=== PATIENT | male | born 1955 | race Caucasian/White ===

== ENCOUNTER → 2017-12-08 07:19 | Outpatient (CLI) | payer OTHER, SELFPAY | PROVIDERS: Visit Provider Urology | DX: R97.20 Elevated prostate specific antigen [PSA] (principal) | CPT/HCPCS: 36415; 84153 ==

== ENCOUNTER → 2018-12-01 13:00 | Outpatient (CLI) | payer OTHER, SELFPAY ==
[2018-12-01 15:08] LABS: Prostate Specific Antigen 6.98 ng/mL (0.10-4.00)
== END ==
PROVIDERS: PCP Internal Medicine; Visit Provider Urology
DX: R97.20 Elevated prostate specific antigen [PSA] (principal)
CPT/HCPCS: 36415; 84153

== ENCOUNTER → 2019-04-26 09:36 | Outpatient (CLI) | payer OTHER, SELFPAY ==
[2019-04-26 11:41] LABS: Prostate Specific Antigen 6.66 ng/mL (0.10-4.00)
== END ==
PROVIDERS: Family Provider Internal Medicine; PCP Internal Medicine; Visit Provider Urology
DX: R97.20 Elevated prostate specific antigen [PSA] (principal)
CPT/HCPCS: 36415; 84153

== ENCOUNTER 2019-08-25 14:08 | Day surgery (SDC) | payer OTHER, SELFPAY ==
[2019-08-25 14:34] VITALS: BMI 28.7
[2019-08-25 14:40] VITALS: BP 139/82; PULSE 69; RESP 20; TEMP 36.2; O2SAT 95
[2019-08-25] MEDS: SODIUM CHLORIDE 0.9% 1,000 ML 200 ML IV (14:53)
--- NOTE | 2019-08-25 14:54 | PM.HP.1 ---
History of Present Illness History of Present Illness Date Patient Seen: 08/25/19 Time Patient Seen: 15:00 Chief complaint: 54031 Narrative: Patient presents for colorectal screening. He had a previous colonoscopy 3 years ago which was normal. He has a history of right colon cancer status post resection 10 years ago. On further history denies any recent gastrointestinal symptoms. No nausea, vomiting, abdominal pain, loss of appetite, unexplained weight loss, change in bowel habits, diarrhea, constipation, melena, hematochezia, or bright red blood per rectum. Patient History Surgical History Status post colectomy Family & Social History Family History Mother Age: 97 Diabetes mellitus Social History: household members spouse Tobacco & Substance use: Smoking Status Never smoker alcohol intake current alcohol intake frequency a few times a month Substance Use Type does not use Meds Home Medications and Allergies Home Medications Medication Instructions Recorded Confirmed Type ibuprofen 200 mg PO Q6HP #0 01/12/13 08/25/19 History ferrous sulfate [Iron (ferrous 325 mg PO QDAY #0 tab 02/21/16 08/25/19 History sulfate)] escitalopram oxalate [Lexapro] 10 mg PO QDAY #90 tab 10/19/17 08/25/19 Rx omeprazole 40 mg PO QDAY #90 cap 10/19/17 08/25/19 Rx sodium,potassium,mag sulfates 17.5 177 ml PO DAILY #354 ml 07/26/19 Rx gram-3.13 gram-1.6 gram oral soln simvastatin 20 mg PO QDAYPM 08/25/19 08/25/19 History Allergies Allergy/AdvReac Type Severity Reaction Status Date / Time hydromorphone [HYDROMORPHONE] AdvReac Mild HALLUCINATI Verified 08/25/19 14:31 ONS Review of Systems Review of Systems Narrative: A 10 point review of systems is negative except as noted in the HPI Exam Vital Signs (past 8 hours): - 08/25/19 14:40 Temperature 97.1 F L Pulse Rate 69 Respiratory Rate 20 Blood Pressure 139/82 Pulse Oximetry 95 Oxygen Delivery Method Room Air Narrative Exam Narrative: General-no acute distress, well nourished HEENT-moist mucous membranes, no scleral icterus Neck-supple, no lymphadenopathy Chest- non labored respirations, clear to auscultation bilaterally Cardiac-regular rate no peripheral edema Abdomen-soft, nontender, non distended Extremities-warm, well perfused Neurological-alert and oriented, no focal deficits Assessment & Plan Assessment and plan (1) Screening for colon cancer: Current visit: Yes Status: Acute Assessment & Plan narrative: The patient requires colorectal screening and colonoscopy is recommended. Technical details were discussed. Risks, benefits, alternatives explained. Risks including but not limited to myocardial infarction, aspiration, bleeding, pain, missed lesion, incomplete examination, need for further radiographic studies, colonic perforation, and need for major abdominal surgery were discussed. All questions were answered to their satisfaction, and they are in agreement with this plan.
--- NOTE | 2019-08-25 15:16 | PM.OP.ENDO ---
Operative Date/Time/Diagnoses Date of procedure: 08/25/19 Time of procedure: 15:17 Pre-op diagnosis: History of colon cancer Post-op diagnosis: same Procedure & Clinicians Study performed: Colonoscopy Same procedure as scheduled: Yes Indications: History of right colon cancer status post hemicolectomy Surgeon: Ignacio Dawson Procedure Notes SCOAP/Timeout: Performed Procedure in detail: Patient placed in left lateral decubitus position. Time out was performed. Procedural sedation was administered with Versed and Fentanyl. A rectal exam demonstrated no external hemorrhoids no internal masses. Colonoscopy scope was placed into the rectum and advanced through the colon. The ileal colonic anastomosis was observed and was normal in its appearance. The scope was then slowly withdrawn examining colon thoroughly in all directions. The colonoscopy was notable for the following 1. Borja diverticulosis 2. No masses or polyps 3. Grade 1 internal hemorrhoids Scope withdrawal time: NA-history of colectomy Sedation minutes: 12 Findings: diverticulosis Specimen(s): none sent Complications: none Impression: Diverticulosis Post-procedure Recommendations: Colonscopy in 5 years Disposition: same day surgery
[2019-08-25] MEDS: MIDAZOLAM 5 MG/5 ML VIAL IV (15:17)
[2019-08-25] MEDS: fentaNYL 250 MCG/5 ML INJ IV (15:17)
[2019-08-25 15:24] VITALS: BP 129/74; PULSE 81; RESP 14; TEMP 36.7; O2SAT 95
[2019-08-25 15:27] VITALS: BP 126/76; PULSE 64; RESP 15; O2SAT 94
[2019-08-25 15:42] VITALS: BP 130/78; PULSE 62; RESP 16; O2SAT 95
[2019-08-25 16:21] VITALS: BP 138/77; PULSE 64; RESP 12; TEMP 36.6; O2SAT 98
== END 2019-08-25 16:23 | disposition home or self-care (01) ==
PROVIDERS: Family Provider Internal Medicine; PCP Internal Medicine; Referring Provider Surgery; Visit Provider Surgery
PROC: 0DJD8ZZ Inspection of Lower Intestinal Tract, Via Natural or Artificial Opening Endoscopic (ICD-10-PCS; CPT 45378; principal; 2019-08-25 15:15)
DX: Z12.11 Encounter for screening for malignant neoplasm of colon (principal); Z90.49 Acquired absence of other specified parts of digestive tract; Z85.038 Personal history of other malignant neoplasm of large intestine; K64.0 First degree hemorrhoids; K57.30 Diverticulosis of large intestine without perforation or abscess without bleeding
CPT/HCPCS: 45378; 99152; J2250; J3010

== ENCOUNTER → 2019-08-27 14:54 | Outpatient (CLI) | payer OTHER, SELFPAY ==
--- NOTE | 2019-08-27 14:57 | DI.RAD.S_ITS ---
PROCEDURE: XR RIBS RT MIN 3V W CXR 1V INDICATIONS: recent URI, r/o rib fracture/pneumonia. Suspect costochondritis TECHNIQUE: 3 views of the right ribs were acquired, along with a single view chest. COMPARISON: [facility], , CHEST 2 VIEW, 10/18/2012, 12:14. FINDINGS: Surgical changes and devices: None. Bones and chest wall: No displaced right fractures or dislocations. No suspicious bony lesions. Overlying soft tissues appear unremarkable. Lungs and pleura: No pleural effusions or pneumothorax. There is a vague area of increased attenuation at the left costophrenic angle. Mediastinum: Mediastinal contours appear normal. Heart size is normal. IMPRESSION: 1. No displaced right rib fractures. 2. Vague area of increased density at the left costophrenic angle may represent atelectasis. Please correlate clinically to exclude pneumonia. Dictated by: Joss Root M.D. on 08/27/2019 at 15:51 Approved by: Joss Root M.D. on 08/27/2019 at 15:55
== END ==
PROVIDERS: Family Provider Internal Medicine; PCP Internal Medicine; Referring Provider Physician Assistant; Visit Provider Physician Assistant
DX: R07.89 Other chest pain (principal)
CPT/HCPCS: 71101

== ENCOUNTER 2023-04-11 22:56 | Emergency (ER) | payer OTHER, SELFPAY ==
[2023-04-11 22:59] VITALS: PULSE 66; RESP 16; TEMP 36.6; O2SAT 98; BMI 28.7
[2023-04-11 23:27] LABS: Add Manual Diff / Slide Review NO; Basophils Absolute Auto 0 /uL (0-100); Basophils Percent Auto 0.1 % (0-2); Eosinophils Absolute Auto 100 /uL (0-450); Eosinophils Percent Auto 1.1 % (2-4); Hematocrit 40.8 % (41-53); Lymphocytes Absolute Auto 500 /uL (1100-4500); Lymphocytes Percent Auto 4.5 % (25-40); Mean Corpuscular HGB Conc 34.3 % (30-36); Mean Corpuscular Hemoglobin 32.1 PG (26-34); Mean Corpuscular Volume 93.5 fL (80-100); Monocytes Absolute Auto 900 /uL (0-900); Monocytes Percent Auto 7.8 % (3-14); Neutrophils Absolute Auto 9900 /uL (1500-7000); Neutrophils Percent Auto 86.5 % (50-75); Platelet Count 151 X10^3/uL (150-400); Red Blood Cell Count 4.36 X10^6/uL (4.5-5.9); Red Cell Distribution Width 14.4 % (11.6-14.8); White Blood Cell Count 11.4 X10^3/uL (4.5-11.0)
[2023-04-11 23:29] VITALS: PULSE 63; O2SAT 97
[2023-04-11 23:30] VITALS: BP 146/76; PULSE 62; O2SAT 97
[2023-04-11 23:36] LABS: Alanine Aminotransferase 19 IU/L (<50); Albumin 4.1 g/dL (3.5-5.0); Albumin Globulin Ratio 1.3 (1.0-2.8); Alkaline Phosphatase 80 U/L (38-126); Aspartate Aminotransferase 23 IU/L (17-59); Bilirubin Total 0.6 mg/dL (0.2-1.3); Blood Urea Nitrogen 15 mg/dL (9-20); Calcium 9.3 mg/dL (8.4-10.2); Carbon Dioxide 24 mmol/L (22-32); Chloride 105 mmol/L (98-107); Estimated Glomerular Filt Rate > 60 mL/min (>60); Globulin 3.1 g/dL (1.7-4.1); Glucose 128 mg/dL (80-110); HEMOLYSIS < 15 (0-50); Lipase 723 U/L (23-300); Potassium 3.8 mmol/L (3.4-5.1); Sodium 139 mmol/L (137-145); Total Protein 7.2 g/dL (6.3-8.2)
[2023-04-12] VITALS (9 sets, daily range): BP systolic 134–160; BP diastolic 66–78; PULSE 60–63; RESP 16–24; TEMP 36.3; O2SAT 86–98
--- NOTE | 2023-04-12 00:27 | ED.ABDPAIN ---
HPI - Abdominal Pain General Chief Complaint: Abdominal Pain Stated Complaint: URQ pain Time Seen by Provider: 04/11/23 23:31 Source: patient Mode of arrival: Ambulatory History of Present Illness HPI narrative: Patient 67-year-old male history of cholecystectomy colectomy ongoing abdominal hernia presenting today with right upper quadrant pain. He reports that it has been there for the past couple of days progressively getting worse. He has been feeling nausea these he is had decrease appetite. No actual vomiting. No change in bowel or bladder habits. No fever chills. No painful frequent urination. Not having any chest pain palpitations. He denies any flank pain or radiation of pain is is really in 1 particular area in right upper quadrant Related Data Home Medications Medication Instructions Recorded Confirmed ibuprofen 200 mg tablet 200 mg PO Q6HP ##0 01/12/13 03/07/20 ferrous sulfate 325 mg (65 mg 325 mg PO QDAY #0 tabs 02/21/16 03/07/20 iron) tablet (Iron (ferrous sulfate)) simvastatin 40 mg tablet 20 mg PO QDAYPM 08/25/19 03/07/20 Previous Rx's Medication Instructions Recorded escitalopram oxalate 10 mg tablet 10 mg PO QDAY #90 tabs 10/19/17 (Lexapro) omeprazole 40 mg capsule,delayed 40 mg PO QDAY #90 caps 10/19/17 release sodium,potassium,mag sulfates 17.5 177 ml PO DAILY 2 doses #354 mL 07/26/19 gram-3.13 gram-1.6 gram oral soln (Suprep Bowel Prep Kit) ondansetron 4 mg disintegrating 4 mg PO BID PRN nausea and 03/07/20 tablet vomiting #10 tabs tamsulosin 0.4 mg capsule (Flomax) 0.4 mg PO DAILY #20 caps 03/07/20 hydrocodone 5 mg-acetaminophen 325 1 tab PO Q6H PRN pain #10 tabs 04/12/23 mg tablet ondansetron 4 mg disintegrating 4 mg PO Q8H PRN nausea and 04/12/23 tablet vomiting #10 tabs Allergies Allergy/AdvReac Type Severity Reaction Status Date / Time hydromorphone [HYDROMORPHONE] AdvReac Mild HALLUCINATI Verified 03/07/20 12:31 ONS Review of Systems Review of Systems ROS Unobtainable: All systems reviewed & are unremarkable except as noted in HPI and below Patient History Medical History Kidney stone Right-sided chest wall pain Surgical History Status post colectomy Family History Mother Age: 100 Diabetes mellitus Social History household members: spouse Smoking Status: Never smoker alcohol intake: current Smoking Status: Never smoker alcohol intake frequency: a few times a month Substance Use Type: does not use Exam Initial Vital Signs Initial Vital Signs: Vital Signs Temperature 97.9 F 04/11/23 22:59 Pulse Rate 66 04/11/23 22:59 Respiratory Rate 16 04/11/23 22:59 Pulse Oximetry 98 04/11/23 22:59 Oxygen Delivery Method Room Air 04/11/23 22:59 GENERAL: Alert pleasant 67-year-old and in no acute distress. HEENT: Head atraumatic,EOMI, pupils reactive, face symmetric, moist mucous membranes CARDIOVASCULAR: Regular rate and rhythm without murmurs, rubs or gallops. RESPIRATORY: Breath sounds equal bilaterally, no wheezes rales or rhonchi. ABDOMEN: Soft, tender right upper quadrant and guarding no rebound surgical scar noted ventral hernia noted EXTREMITIES: Normal range of motion, no clubbing or edema. Neurovascularly intact NEUROLOGICAL: Alert and oriented x4. SKIN: Warm, dry, no laceration, no petechiae, no rashes or lesions. Course Orders Ordered: ED Orders 04/11/23 23:17 Complete Blood Count AUTO DIFF Stat Comprehensive Metabolic Panel Stat Lipase Stat 04/12/23 00:32 CT abdomen pelvis w con Stat Discontinued Medications Hydrocodone Bitart/Acetaminophen (Hydrocodone/Acet 5/325 Tablet) 1 tab PO NOW ONE Stop: 04/12/23 02:01 Last Admin: 04/12/23 02:22 Dose: 1 tab Documented By: SHANTANU Hydrocodone Bitart/Acetaminophen (Hydrocodone/Acet 5/325 Prepack) 1 bottle MISC SEEINSTR ONE Stop: 04/12/23 02:02 Last Admin: 04/12/23 02:23 Dose: 1 bottle Documented By: SHANTANU Ketorolac Tromethamine (Ketorolac 30 Mg/Ml Vial) 15 mg IV NOW ONE Stop: 04/12/23 00:33 Last Admin: 04/12/23 00:46 Dose: 15 mg Documented By: SHANTANU Ondansetron HCl (Ondansetron 4 Mg Odt Prepack) 1 bottle MISC SEEINSTR ONE Stop: 04/12/23 02:01 Last Admin: 04/12/23 02:22 Dose: 1 bottle Documented By: SHANTANU Vital Signs Vital signs: Vital Signs - 8 hr 04/11/23 22:59 04/11/23 23:29 04/11/23 23:30 Temperature 97.9 F Pulse Rate 66 63 62 Respiratory Rate 16 Blood Pressure Pulse Oximetry 98 97 97 Oxygen Delivery Method Room Air 04/11/23 23:30 04/12/23 00:00 04/12/23 00:00 Temperature Pulse Rate 60 Respiratory Rate Blood Pressure 146/76 H 144/77 H Pulse Oximetry 96 Oxygen Delivery Method 04/12/23 00:30 04/12/23 00:31 04/12/23 00:31 Temperature Pulse Rate 63 62 Respiratory Rate Blood Pressure 154/75 H Pulse Oximetry 97 97 Oxygen Delivery Method 04/12/23 01:03 04/12/23 01:06 04/12/23 01:06 Temperature Pulse Rate 62 60 Respiratory Rate 17 Blood Pressure 160/78 H Pulse Oximetry 86 L 98 Oxygen Delivery Method 04/12/23 01:30 04/12/23 01:30 04/12/23 02:02 Temperature Pulse Rate 60 60 Respiratory Rate 16 24 Blood Pressure 135/67 Pulse Oximetry 96 98 Oxygen Delivery Method 04/12/23 02:03 04/12/23 02:03 04/12/23 02:25 Temperature 97.3 F L Pulse Rate 60 Respiratory Rate 20 Blood Pressure 134/66 Pulse Oximetry 97 Oxygen Delivery Method MDM - Abdominal Pain Lab Data 04/11/23 23:17 04/11/23 23:17 Labs: Lab Results 04/11/23 Range/Units 23:17 WBC 11.4 H (4.5-11.0) X10^3/uL RBC 4.36 L (4.5-5.9) X10^6/uL Hgb 14.0 (13.5-17.5) g/dL Hct 40.8 L (41-53) % MCV 93.5 (80-100) fL MCH 32.1 (26-34) PG MCHC 34.3 (30-36) % RDW 14.4 (11.6-14.8) % Plt Count 151 (150-400) X10^3/uL Neut % (Auto) 86.5 H (50-75) % Lymph % (Auto) 4.5 L (25-40) % [place] % (Auto) 7.8 (3-14) % Eos % (Auto) 1.1 L (2-4) % Baso % (Auto) 0.1 (0-2) % Neut # (Auto) 9900 H (7215-6639) /uL Lymph # (Auto) 500 L (0827-0345) /uL [place] # (Auto) 900 (0-900) /uL Eos # (Auto) 100 (0-450) /uL Baso # (Auto) 0 (0-100) /uL Sodium 139 (137-145) mmol/L Potassium 3.8 (3.4-5.1) mmol/L Chloride 105 (98-107) mmol/L Carbon Dioxide 24 (22-32) mmol/L BUN 15 (9-20) mg/dL Creatinine 0.75 (0.66-1.25) mg/dL Estimated GFR > 60 (>60) mL/min BUN/Creatinine Ratio 20.0 (6-22) Glucose 128 H (80-110) mg/dL Calcium 9.3 (8.4-10.2) mg/dL Total Bilirubin 0.6 (0.2-1.3) mg/dL AST 23 (17-59) IU/L ALT 19 (<50) IU/L Alkaline Phosphatase 80 (38-126) U/L Total Protein 7.2 (6.3-8.2) g/dL Albumin 4.1 (3.5-5.0) g/dL Globulin 3.1 (1.7-4.1) g/dL Albumin/Globulin Ratio 1.3 (1.0-2.8) Lipase 723 H (23-300) U/L Imaging Data CT scan - abdomen/pelvis: Radiologist's Impression: PROCEDURE: CT ABDOMEN PELVIS W CON INDICATIONS: RUQ abdominal pain x 2 days. TECHNIQUE: After the administration of intravenous contrast, axial sections acquired from the lung bases to the pubic symphysis. Coronal and sagittal reformats were performed. For radiation dose reduction, the following was used: automated exposure control, adjustment of mA and/or kV according to patient size. COMPARISON: None. FINDINGS: Image quality: Excellent. Lung bases: Unremarkable. Heart: No significant findings. ABDOMEN: Liver: Multiple water density hepatic cysts suspicious for representing evidence of polycystic hepatic renal syndrome.. Gallbladder: Previously resected Biliary ducts: Unremarkable. Pancreas: Pancreatitis is suspected adjacent to the transverse duodenum given the pattern mild edema in this area. Anterior to the area of retroperitoneal apparent inflammation is a masslike structure that measures up to 3.5 cm in dimension. This has central low attenuation that could represent an inflammatory mass. Spleen: Unremarkable. Adrenal Glands: Unremarkable. Kidneys and Ureters: No obstruction. The number of cysts present at the kidneys bilaterally is small when compared to the number of cysts seen involving the liver. This does not entirely exclude the possibility of hepatic renal polycystic disease syndrome. Stomach and Bowel: Stomach, small bowel loops, and colon are unremarkable. Please refer to discussion of left lower quadrant body wall herniation of small bowel within the pelvis section below. Peritoneum: No abnormal intraperitoneal fluid. No free air. Ventral Wall: No hernias. Abdominal Nodes: No retroperitoneal or mesenteric adenopathy by size criteria. Vessels: Aorta and inferior vena cava are normal in size. Note is made of greater than 50% stenosis at the right common iliac artery due to eccentric calcific atherosclerotic chronic thrombosis. PELVIS: Pelvic Organs: Unremarkable. Bladder: Unremarkable. Pelvic Nodes: No enlarged lymph nodes. Miscellaneous: A body wall defect just to the left of midline is seen at the anterior pelvis body wall on series 2, image 60. Small bowel extends through this defect into the subcutaneous fat but does not appear to be edematous and definitely incarcerated or strangulated.. Bones: Unremarkable. IMPRESSION: 1. Apparent pancreatitis involving the pancreatic neck and body. Retroperitoneal edema is immediately adjacent. Slightly more anteriorly within the peritoneal fat is a masslike structure which could represent an inflammatory mass in this clinical circumstance that measures up to 3.5 cm in diameter. Follow-up is recommended to confirm resolution. If the structure enlarges or persists malignant neoplasm must be considered. 2. Left lower quadrant anterior pelvic body wall peritoneal defect through which a segment of small bowel passes into the subcutaneous fat. The small bowel involved does not appear definitely edematous and incarcerated/strangulated. 3. Prior cholecystectomy. Possible hepatorenal polycystic disease, with greater involvement by the liver than by the kidneys. Greater than 50% stenosis at the right common iliac artery by chronic eccentric thrombus. Dictated by: Trevor Nicholson M.D. on 04/12/2023 at 1:29 MDM Narrative Medical decision making narrative: Patient 67-year-old male presenting to his right upper quadrant pain just progressively gotten worse. He is nauseous no vomiting decrease in appetite. Blood work has been reviewed mild elevation in lipase at around 775. CT shows apparent Pancreatitis of pancreatic neck and body with masslike structure which could be inflammation. Patient has no significant vomiting he does have some pain however it is pretty well controlled. He is tolerating fluids. At this time recommend home management we discussed pain medication and fluids. Also discussed need for re-evaluation and reimaging in regards to possible mass. Known cause of pancreatitis. He denies any alcohol usage he has had prior cholecystectomy. Bilirubin and liver enzymes are within normal limits low suspicion for common bile duct stone. Time no need for admission Discharge Plan Departure Patient Disposition: Home Clinical Impression: Acute pancreatitis Instructions: DI for Pancreatitis Activity Restrictions/Additional Instructions: *You have been diagnosed with pancreatitis *What to do: At this time increase fluid intake recommend Gatorade or Gatorade like product. May eat as tolerated CT did suggest masslike structure or inflammatory process this needs to be re-evaluated by her primary care provider with repeat imaging *Continue to take medications as directed [place] 1 tablet every 6 hours if needed for [id number] pain Motrin 600 mg every 6 hours if needed for orot-ri-nucbypeh pain Zofran 4 mg every 8 hours if needed for nausea or vomiting *Follow up with your primary care provider in 2-3 days or call [phone] *Return to ER if you should have increasing pain persistent vomiting fever [or] any new, worsening or concerning symptoms CONTROLLED SUBSTANCE DISCHARGE (Narcotoic/benzodiazepine/Flexeril/Phenergan) 1. You have been prescribed narcotic medications, it does have acetaminophen/Tylenol/paracetamol in it, DO NOT TAKE MORE THAN 4,00mg in 24 hours of Tylenol. TRAMADOL DOES NOT CONTAIN TYLENOL 2. Please understand that we cannot provide further refills of narcotics, benzodiazepines or controlled substances through the ED and her pain management will need to be through your provider. 3. While on these medications you cannot drive or operate heavy machinery. 4. You cannot sign legal documents or perform any duties such as this. 5. As long as you're taking opiate pain medications he should also be taking a stool softener such as Colace, Dulcolax, MiraLAX or prune juice, to help avoid constipation. Prescriptions: New hydrocodone-acetaminophen 5-325 mg tablet 1 tab PO Q6H PRN (Reason: pain) Qty: 10 0RF ondansetron 4 mg tablet,disintegrating 4 mg PO Q8H PRN (Reason: nausea and vomiting) Qty: 10 0RF No Action ondansetron 4 mg tablet,disintegrating 4 mg PO BID PRN (Reason: nausea and vomiting) Qty: 10 0RF tamsulosin [Flomax] 0.4 mg capsule 0.4 mg PO DAILY Qty: 20 0RF ibuprofen 200 MG tablet 200 mg PO Q6HP Qty: 0 ferrous sulfate [Iron (ferrous sulfate)] 325 MG tablet 325 mg PO QDAY Qty: 0 omeprazole 40 MG capsule,delayed release(DR/EC) 40 mg PO QDAY Qty: 90 3RF escitalopram oxalate [Lexapro] 10 MG tablet 10 mg PO QDAY Qty: 90 3RF Suprep Bowel Prep Kit 17.5-3.13-1.6 gram recon soln 177 ml PO DAILY Qty: 354 0RF Rx Instructions: Take per instructions from clinic simvastatin 40 MG tablet 20 mg PO QDAYPM Referrals: Omar Higgins MD [Primary Care Provider] - Stand Alone Forms: Patient Portal/API
--- NOTE | 2023-04-12 00:32 | DI.CT.S_ITS ---
PROCEDURE: CT ABDOMEN PELVIS W CON INDICATIONS: RUQ abdominal pain x 2 days. TECHNIQUE: After the administration of intravenous contrast, axial sections acquired from the lung bases to the pubic symphysis. Coronal and sagittal reformats were performed. For radiation dose reduction, the following was used: automated exposure control, adjustment of mA and/or kV according to patient size. COMPARISON: None. FINDINGS: Image quality: Excellent. Lung bases: Unremarkable. Heart: No significant findings. ABDOMEN: Liver: Multiple water density hepatic cysts suspicious for representing evidence of polycystic hepatic renal syndrome.. Gallbladder: Previously resected Biliary ducts: Unremarkable. Pancreas: Pancreatitis is suspected adjacent to the transverse duodenum given the pattern mild edema in this area. Anterior to the area of retroperitoneal apparent inflammation is a masslike structure that measures up to 3.5 cm in dimension. This has central low attenuation that could represent an inflammatory mass. Spleen: Unremarkable. Adrenal Glands: Unremarkable. Kidneys and Ureters: No obstruction. The number of cysts present at the kidneys bilaterally is small when compared to the number of cysts seen involving the liver. This does not entirely exclude the possibility of hepatic renal polycystic disease syndrome. Stomach and Bowel: Stomach, small bowel loops, and colon are unremarkable. Please refer to discussion of left lower quadrant body wall herniation of small bowel within the pelvis section below. Peritoneum: No abnormal intraperitoneal fluid. No free air. Ventral Wall: No hernias. Abdominal Nodes: No retroperitoneal or mesenteric adenopathy by size criteria. Vessels: Aorta and inferior vena cava are normal in size. Note is made of greater than 50% stenosis at the right common iliac artery due to eccentric calcific atherosclerotic chronic thrombosis. PELVIS: Pelvic Organs: Unremarkable. Bladder: Unremarkable. Pelvic Nodes: No enlarged lymph nodes. Miscellaneous: A body wall defect just to the left of midline is seen at the anterior pelvis body wall on series 2, image 60. Small bowel extends through this defect into the subcutaneous fat but does not appear to be edematous and definitely incarcerated or strangulated.. Bones: Unremarkable. IMPRESSION: 1. Apparent pancreatitis involving the pancreatic neck and body. Retroperitoneal edema is immediately adjacent. Slightly more anteriorly within the peritoneal fat is a masslike structure which could represent an inflammatory mass in this clinical circumstance that measures up to 3.5 cm in diameter. Follow-up is recommended to confirm resolution. If the structure enlarges or persists malignant neoplasm must be considered. 2. Left lower quadrant anterior pelvic body wall peritoneal defect through which a segment of small bowel passes into the subcutaneous fat. The small bowel involved does not appear definitely edematous and incarcerated/strangulated. 3. Prior cholecystectomy. Possible hepatorenal polycystic disease, with greater involvement by the liver than by the kidneys. Greater than 50% stenosis at the right common iliac artery by chronic eccentric thrombus. Dictated by: Trevor Nicholson M.D. on 04/12/2023 at 1:29 Approved by: Trevor Nicholson M.D. on 04/12/2023 at 1:40
[2023-04-12] MEDS: KETOROLAC 30 MG/ML VIAL 15 MG IV (00:46)
[2023-04-12] MEDS: HYDROCODONE/ACET 5/325 TABLET 1 TAB PO (02:22)
[2023-04-12] MEDS: ONDANSETRON 4 MG ODT PREPACK 1 BOTTLE MISC (02:22)
[2023-04-12] MEDS: HYDROCODONE/ACET 5/325 PREPACK 1 BOTTLE MISC (02:23)
== END 2023-04-12 02:26 | disposition home or self-care (01) ==
PROVIDERS: Emergency Provider Emergency Medicine; Family Provider Internal Medicine; PCP Internal Medicine
DX: K85.90 Acute pancreatitis without necrosis or infection, unspecified (principal)
CPT/HCPCS: 36415; 74177; 80053; 83690; 85025; 96374; 99284; J1885; Q9967

== ENCOUNTER 2023-04-12 13:35 | Emergency (ER) | payer OTHER, SELFPAY ==
[2023-04-12] VITALS (19 sets, daily range): BP systolic 120–154; BP diastolic 62–82; PULSE 56–68; RESP 14–20; TEMP 36.7; O2SAT 93–97; BMI 24.4
--- NOTE | 2023-04-12 15:30 | ED_ITS ---
HPI - General Adult General Chief complaint: Abdominal Pain Stated complaint: worsening sx/states pancreatitis Time Seen by Provider: 04/12/23 13:44 Source: patient Mode of arrival: Ambulatory History of Present Illness HPI narrative: 67-year-old gentleman presents for the 2nd time in 24 hours with continued abdominal pain. He was diagnosed with acute pancreatitis last night he is post cholecystectomy. Last night he was tolerating food, oral nausea medications and oral pain medications and decision was made to go home. He is gotten progressively worse. And comes back for further evaluation. He has been unable to eat for approximately 24 hours. He did try some fluids last night which made symptoms significantly worse. He does not describe any fevers. Zofran in the emergency department has controlled his nausea. Related Data Home Medications Medication Instructions Recorded Confirmed ibuprofen 200 mg tablet 200 mg PO Q6HP ##0 01/12/13 03/07/20 ferrous sulfate 325 mg (65 mg 325 mg PO QDAY #0 tabs 02/21/16 03/07/20 iron) tablet (Iron (ferrous sulfate)) simvastatin 40 mg tablet 20 mg PO QDAYPM 08/25/19 03/07/20 Previous Rx's Medication Instructions Recorded escitalopram oxalate 10 mg tablet 10 mg PO QDAY #90 tabs 10/19/17 (Lexapro) omeprazole 40 mg capsule,delayed 40 mg PO QDAY #90 caps 10/19/17 release sodium,potassium,mag sulfates 17.5 177 ml PO DAILY 2 doses #354 mL 07/26/19 gram-3.13 gram-1.6 gram oral soln (Suprep Bowel Prep Kit) ondansetron 4 mg disintegrating 4 mg PO BID PRN nausea and 03/07/20 tablet vomiting #10 tabs tamsulosin 0.4 mg capsule (Flomax) 0.4 mg PO DAILY #20 caps 03/07/20 hydrocodone 5 mg-acetaminophen 325 1 tab PO Q6H PRN pain #10 tabs 04/12/23 mg tablet ondansetron 4 mg disintegrating 4 mg PO Q8H PRN nausea and 04/12/23 tablet vomiting #10 tabs oxycodone-acetaminophen 5 mg-325 1 - 2 tab PO Q6H PRN pain #14 tabs 04/12/23 mg tablet Allergies Allergy/AdvReac Type Severity Reaction Status Date / Time hydromorphone [HYDROMORPHONE] AdvReac Mild HALLUCINATI Verified 03/07/20 12:31 ONS Review of Systems Review of Systems Narrative: Pertinent positive and negative findings as per HPI Patient History Medical History Kidney stone Right-sided chest wall pain Surgical History Status post colectomy Family History Mother Age: 100 Diabetes mellitus Social History household members: spouse Smoking Status: Never smoker alcohol intake: current Smoking Status: Never smoker alcohol intake frequency: a few times a month Substance Use Type: does not use Exam Initial Vital Signs Initial Vital Signs: Vital Signs Pulse Rate 66 04/12/23 13:42 Pulse Oximetry 97 04/12/23 13:42 General: Healthy appearing, in mild distress. Able to give a complete and coherent history. Well-nourished well-developed HEENT: Moist mucous membranes, normal sclera with reactive pupils, Neck: No JVD, supple Respiratory: Lungs are clear to auscultation, no wheezing no rales no rhonchi. Full and symmetrical air movement Cardiac: Regular rate and rhythm no murmurs no bruits Abdomen: Distended but soft, mild abdominal pain only. No flank pain Skin: Warm and dry, no rashes Neurologic: Grossly neurologically intact with no obvious asymmetries or abnormalities Extremities: No trauma, well perfused Psych: Cooperative, appropriate insight and affect Course Orders Ordered: ED Orders 04/12/23 16:01 Complete Blood Count AUTO DIFF Stat Comprehensive Metabolic Panel Stat Lipase Stat Hydromorphone HCl (Hydromorphone 0.5 Mg Inj) 0.5 mg IV Q15MIN PRN PRN Reason: Pain, Discontinued Medications Hydromorphone HCl (Hydromorphone 1 Mg Inj) 1 mg IV NOW ONE Stop: 04/12/23 15:32 Last Admin: 04/12/23 16:04 Dose: 1 mg Documented By: KESHIA Sodium Chloride (Normal Saline 0.9%) 1,000 mls @ 1,000 mls/hr IV BOLUS ONE Stop: 04/12/23 16:30 Last Infusion: 04/12/23 16:59 Dose: Infused Documented By: Admin: 04/12/23 16:05 Dose: 1,000 mls/hr Documented By: KESHIA Ondansetron HCl (Ondansetron 4 Mg/2 Ml Inj) 4 mg IV NOW ONE Stop: 04/12/23 15:32 Last Admin: 04/12/23 16:04 Dose: 4 mg Documented By: KESHIA Vital Signs Vital signs: Vital Signs - 8 hr 04/12/23 13:42 04/12/23 13:44 04/12/23 13:44 Temperature Pulse Rate 66 65 Respiratory Rate Blood Pressure 150/75 H Pulse Oximetry 97 97 Oxygen Delivery Method 04/12/23 13:48 04/12/23 14:00 04/12/23 14:30 Temperature 98.1 F Pulse Rate 68 64 67 Respiratory Rate 18 Blood Pressure 150/75 H 145/65 H 150/62 H Pulse Oximetry 97 96 96 Oxygen Delivery Method Room Air 04/12/23 15:00 04/12/23 15:17 04/12/23 15:17 Temperature Pulse Rate 63 63 Respiratory Rate Blood Pressure 154/72 H 154/72 H Pulse Oximetry 95 95 Oxygen Delivery Method 04/12/23 15:30 04/12/23 15:30 04/12/23 15:53 Temperature Pulse Rate 64 64 Respiratory Rate Blood Pressure 145/82 H Pulse Oximetry 95 95 Oxygen Delivery Method 04/12/23 15:53 04/12/23 16:00 04/12/23 16:00 Temperature Pulse Rate 62 Respiratory Rate 16 Blood Pressure 136/72 138/73 Pulse Oximetry 93 Oxygen Delivery Method 04/12/23 16:30 04/12/23 16:30 04/12/23 17:00 Temperature Pulse Rate 57 L 58 L Respiratory Rate 14 18 Blood Pressure 131/65 124/62 Pulse Oximetry 94 97 Oxygen Delivery Method Room Air 04/12/23 17:00 04/12/23 17:00 04/12/23 17:29 Temperature Pulse Rate 60 56 L Respiratory Rate 20 19 Blood Pressure 129/63 120/63 Pulse Oximetry 95 95 Oxygen Delivery Method 04/12/23 17:30 04/12/23 17:30 04/12/23 17:45 Temperature Pulse Rate 57 L 57 L Respiratory Rate 16 16 Blood Pressure 120/63 Pulse Oximetry 96 94 Oxygen Delivery Method Medical Decision Making Lab Data 04/12/23 16:01 04/12/23 16:01 Labs: Lab Results 04/12/23 Range/Units 16:01 WBC 12.0 H (4.5-11.0) X10^3/uL RBC 4.30 L (4.5-5.9) X10^6/uL Hgb 13.8 (13.5-17.5) g/dL Hct 39.6 L (41-53) % MCV 92.2 (80-100) fL MCH 32.1 (26-34) PG MCHC 34.8 (30-36) % RDW 14.3 (11.6-14.8) % Plt Count 146 L (150-400) X10^3/uL Neut % (Auto) 88.4 H (50-75) % Lymph % (Auto) 3.2 L (25-40) % [place] % (Auto) 7.4 (3-14) % Eos % (Auto) 0.8 L (2-4) % Baso % (Auto) 0.2 (0-2) % Neut # (Auto) 67142 H (4285-0972) /uL Lymph # (Auto) 400 L (6200-6110) /uL [place] # (Auto) 900 (0-900) /uL Eos # (Auto) 100 (0-450) /uL Baso # (Auto) 0 (0-100) /uL Sodium 138 (137-145) mmol/L Potassium 3.9 (3.4-5.1) mmol/L Chloride 104 (98-107) mmol/L Carbon Dioxide 25 (22-32) mmol/L BUN 13 (9-20) mg/dL Creatinine 0.65 L (0.66-1.25) mg/dL Estimated GFR > 60 (>60) mL/min BUN/Creatinine Ratio 20.0 (6-22) Glucose 114 H (80-110) mg/dL Calcium 9.2 (8.4-10.2) mg/dL Total Bilirubin 0.7 (0.2-1.3) mg/dL AST 22 (17-59) IU/L ALT 18 (<50) IU/L Alkaline Phosphatase 81 (38-126) U/L Total Protein 7.2 (6.3-8.2) g/dL Albumin 4.1 (3.5-5.0) g/dL Globulin 3.1 (1.7-4.1) g/dL Albumin/Globulin Ratio 1.3 (1.0-2.8) Lipase 312 H D (23-300) U/L MDM Narrative Medical decision making narrative: CC: Pancreatitis Complicating co-morbidities: Was in the emergency department last night with initial diagnosis, discharged home with Vicodin and pain was not adequately controlled returns today Data collected from: patient, Medical records reviewed: Labs CT scan and notes from last night with similar presentation reviewed Differential considered: Pancreatitis, pancreatic mass, bowel obstruction, constipation, gastritis, he choledocholithiasis Exam documented above, pertinent findings include: Mild abdominal distention but soft no abdominal pain. Exam takes place approximately an hour after parenteral narcotics. Lab Test results independently reviewed as above. Pertinent findings: CBC shows white blood cell count at 12.0 last night was 11.4. Neutrophils are 88.4 compared to 86.5 last night. He is not anemic Chemistries are unremarkable with lipase coming down from 723 to 312 Imaging studies independently reviewed: CT scan from last night shows apparent pancreatitis involving the pancreatic neck and body with adjacent retroperitoneal edema. Of note within the peritoneal fat is a masslike structure that could be an inflammatory mass all get it Consultations: Treatments: IV Dilaudid and a L of fluid have been effective in controlling his pain. Re-evaluations: 2 hours after the half a mg of Dilaudid dose he is able to eat some crackers and drink some soda without any pain returning Discussion: 67-year-old gentleman who presented last night diagnosed with pancreatitis but felt that he would be able to handle pain at home. Symptoms were worse this morning he returns. With fluids and IV Dilaudid pain is completely resolved. His lipase is coming down nicely his exam is entirely benign. He would prefer to stay in the hospital overnight however at this point with decreasing lipase which was not particularly elevated to start with, absolutely no pain on exam tolerating food with no recurrent pain I am hard pressed to find a reason to have him stay in the hospital. This is all explained to him and he would his do understand. He did find that the Vicodin was not effective in controlling his pain last night stool send him home with Percocet this evening. He was unable to get the Vicodin per filled so we will give him a written prescription for Percocet to fill tomorrow. We did review clear liquid diet, appropriate use of pain medications and reasons to return to the emergency department. This time he is pain-free, no evidence of acute surgical abdomen and is safe for discharge home Discharge Plan Departure Patient Disposition: Home Clinical Impression: Acute pancreatitis Qualifiers: Pancreatitis type: other Acute pancreatitis complication: no infection or necrosis Qualified Code(s): K85.80 - Other acute pancreatitis without necrosis or infection Instructions: DI for Pancreatitis Activity Restrictions/Additional Instructions: Thank you for coming in [facility] I am sorry that your pain was not controlled adequately at home with a Vicodin. Fortunately your repeat blood work today shows that your lipase is down almost to normal levels. With a single small dose of Dilaudid in the emergency department your pain has completely resolved and has stayed resolved even after an oral challenge with some liquids. With no abdominal pain on exam and almost normal lipase levels it makes sense to heavy try going home again. Clearly the Vicodin was not effective for you so I am sending you home with Percocet which has oxycodone rather than hydrocodone in it. I will give you a written prescription to fill more of this for tomorrow if needed. If you find that you are getting worse or develop any new symptoms, please feel free to return to the emergency department for further evaluation. Prescriptions: New oxycodone-acetaminophen 5-325 mg tablet 1 - 2 tab PO Q6H PRN (Reason: pain) Qty: 14 0RF No Action ondansetron 4 mg tablet,disintegrating 4 mg PO BID PRN (Reason: nausea and vomiting) Qty: 10 0RF tamsulosin [Flomax] 0.4 mg capsule 0.4 mg PO DAILY Qty: 20 0RF ibuprofen 200 MG tablet 200 mg PO Q6HP Qty: 0 ferrous sulfate [Iron (ferrous sulfate)] 325 MG tablet 325 mg PO QDAY Qty: 0 omeprazole 40 MG capsule,delayed release(DR/EC) 40 mg PO QDAY Qty: 90 3RF escitalopram oxalate [Lexapro] 10 MG tablet 10 mg PO QDAY Qty: 90 3RF Suprep Bowel Prep Kit 17.5-3.13-1.6 gram recon soln 177 ml PO DAILY Qty: 354 0RF Rx Instructions: Take per instructions from clinic simvastatin 40 MG tablet 20 mg PO QDAYPM hydrocodone-acetaminophen 5-325 mg tablet 1 tab PO Q6H PRN (Reason: pain) Qty: 10 0RF ondansetron 4 mg tablet,disintegrating 4 mg PO Q8H PRN (Reason: nausea and vomiting) Qty: 10 0RF Referrals: Omar Higgins MD [Primary Care Provider] - Stand Alone Forms: Patient Portal/API
[2023-04-12] MEDS: ONDANSETRON 4 MG/2 ML INJ IV (16:04)
[2023-04-12] MEDS: HYDROMORPHONE 1 MG INJ IV (16:04)
[2023-04-12] MEDS: SODIUM CHLORIDE 0.9% 1,000 ML 1000 ML IV (16:05)
[2023-04-12 16:16] LABS: Add Manual Diff / Slide Review NO; Basophils Absolute Auto 0 /uL (0-100); Basophils Percent Auto 0.2 % (0-2); Eosinophils Absolute Auto 100 /uL (0-450); Eosinophils Percent Auto 0.8 % (2-4); Hematocrit 39.6 % (41-53); Hemoglobin 13.8 g/dL (13.5-17.5); Lymphocytes Absolute Auto 400 /uL (1100-4500); Lymphocytes Percent Auto 3.2 % (25-40); Mean Corpuscular HGB Conc 34.8 % (30-36); Mean Corpuscular Hemoglobin 32.1 PG (26-34); Mean Corpuscular Volume 92.2 fL (80-100); Monocytes Absolute Auto 900 /uL (0-900); Monocytes Percent Auto 7.4 % (3-14); Neutrophils Absolute Auto 10600 /uL (1500-7000); Neutrophils Percent Auto 88.4 % (50-75); Platelet Count 146 X10^3/uL (150-400); Red Cell Distribution Width 14.3 % (11.6-14.8)
[2023-04-12 16:23] LABS: Alanine Aminotransferase 18 IU/L (<50); Albumin 4.1 g/dL (3.5-5.0); Albumin Globulin Ratio 1.3 (1.0-2.8); Alkaline Phosphatase 81 U/L (38-126); Aspartate Aminotransferase 22 IU/L (17-59); Bilirubin Total 0.7 mg/dL (0.2-1.3); Blood Urea Nitrogen 13 mg/dL (9-20); Calcium 9.2 mg/dL (8.4-10.2); Carbon Dioxide 25 mmol/L (22-32); Chloride 104 mmol/L (98-107); Estimated Glomerular Filt Rate > 60 mL/min (>60); Globulin 3.1 g/dL (1.7-4.1); Glucose 114 mg/dL (80-110); HEMOLYSIS 21 (0-50); Lipase 312 U/L (23-300); Potassium 3.9 mmol/L (3.4-5.1); Sodium 138 mmol/L (137-145); Total Protein 7.2 g/dL (6.3-8.2)
--- NOTE | 2023-04-12 17:31 | PC.NURSE ---
Pt passed ambulation trial to restroom. Passed oral challenge. Physician notified, clipboard.
[2023-04-12] MEDS: OXYCODONE/APAP 5/325 PREPACK 1 BOTTLE MISC (18:43)
== END 2023-04-12 18:59 | disposition home or self-care (01) ==
PROVIDERS: Emergency Provider Emergency Medicine; Family Provider Internal Medicine; PCP Internal Medicine
DX: K85.80 Other acute pancreatitis without necrosis or infection (principal)
CPT/HCPCS: 36415; 80053; 83690; 85025; 96361; 96374; 96375; 99284; J1170; J2405